=== PATIENT | female | born 1940 | race Caucasian/White ===

== ENCOUNTER 2016-10-10 13:40 | Emergency (ER) | payer MEDICARE, BC ==
[2016-10-10 15:33] VITALS: BP 133/63
--- NOTE | 2016-10-10 16:35 | UC ---
Skin Complaint HPI - HPI Summary HPI Summary: The patient comes in today for: 1. Skin lesion: Onset: one day. Palliative/provocative: Nothing makes it better or worse. Quality: No soreness Region: Back of head. Severity: 0/10 Time: Constant. Associated symptoms: None--no fevers. Event: She was put her hand up there when she was tending to her hair. She could not see it, but she felt something and worried that it may be a tick because she was walking along a trial. * - History of Current Complaint Chief Complaint: UCSkin Time Seen by Provider: 10/10/16 16:29 Stated Complaint: SKIN COMPLAINT HEAD Hx Obtained From: Patient - Allergy/Home Medications Allergies/Adverse Reactions: Allergies Allergy/AdvReac Type Severity Reaction Status Date / Time No Known Allergies Allergy Verified 10/10/16 15:27 Review of Systems Constitutional: Negative Skin: Rash Eyes: Negative ENT: Negative Respiratory: Negative Cardiovascular: Negative Gastrointestinal: Negative All Other Systems Reviewed And Are Negative: Yes PMH/Surg Hx/FS Hx/Imm Hx Previously Healthy: No - Saenz's esophagus. Endocrine History: Dyslipidemia - Surgical History Surgical History: Yes Surgery Procedure, Year, and Place: Gallbladder surgery, hiatal hernia repair, intestinal blockage repaired, right ring finger knuckle replacement, left ankle surgery w/ hardware after fx - Family History Known Family History: Positive: Cardiac Disease, Hypertension - Social History Occupation: Retired Alcohol Use: Occasionally Substance Use Type: None Smoking Status (MU): Never Smoked Tobacco - Immunization History Most Recent Influenza Vaccination: Fall 2013 Physical Exam Triage Information Reviewed: Yes Appearance: Well-Appearing, No Pain Distress, Well-Nourished Vital Signs: Initial Vital Signs Temp 97.7 F 10/10/16 15:28 Pulse 68 10/10/16 15:28 Resp 16 10/10/16 15:28 BP 133/63 10/10/16 15:28 Pulse Ox 99 10/10/16 15:28 Vital Signs Reviewed: Yes Eyes: Positive: Conjunctiva Clear. Negative: Discharge ENT: Positive: Normal ENT inspection. Negative: Pharyngeal erythema, Nasal congestion, Nasal drainage, TM bulging, TM dull, TM red, Tonsillar swelling, Tonsillar exudate Dental: Negative: Gross Decay/Caries @, Dental Fracture @ Neck: Positive: Supple, Nontender, No Lymphadenopathy. Negative: Nuchal Rigidity Respiratory: Positive: Chest non-tender, No respiratory distress, No accessory muscle use. Negative: Crackles, Wheezing, Expiration, Inspiration Cardiovascular: Positive: RRR, No Murmur Abdomen Description: Positive: Nontender, No Organomegaly, Soft. Negative: Distended, Guarding Musculoskeletal: Positive: Strength Intact, ROM Intact, No Edema Neurological: Positive: Alert, Muscle Tone Normal Psychological: Positive: Age Appropriate Behavior, Consolable Skin: Positive: rashes - The patient had a black crusty lesion on the back of the head/upper neck. It was easily scrapped off with a tongue blade. There was a 3-4 mm erythematous area. No bleeding, or tenderness. Patient states that she had her hair done recently. Course/Dx - Differential Diagnoses - Skin Complaint Differential Diagnoses: Drug Rash, Impetigo, Tinea - Diagnoses Provider Diagnoses: Abrasion of the posterior neck. Discharge - Discharge Plan Condition: Stable Disposition: HOME Patient Education Materials: Abrasion (ED) Referrals: Salena Devlin MD [Primary Care Provider] - If Needed (Please see your primary care provider as needed or if you have any more problems. If you have any problems, be seen again at that time.)
== END 2016-10-10 16:44 | disposition home or self-care (01) ==
LOC: UCCORT 13:40
DX: S10.91XA Abrasion of unspecified part of neck, initial encounter (principal); K22.70 Barrett's esophagus without dysplasia; E78.5 Hyperlipidemia, unspecified
CPT/HCPCS: 99211; G0463

== ENCOUNTER 2017-04-07 16:28 | Emergency (ER) | payer MEDICARE, BC ==
[2017-04-07 17:12] VITALS: BP 147/70
--- NOTE | 2017-04-07 17:31 | UC ---
Hand/Wrist HPI - HPI Summary HPI Summary: 76 yo female with left wrist injury after slipping and falling she is right handed - History Of Current Complaint Chief Complaint: UCUpperExtremity Stated Complaint: LEFT WRIST INJURY Time Seen by Provider: 04/07/17 17:07 Hx Obtained From: Patient Onset/Duration: Sudden Onset, Lasting Hours Severity Initially: Moderate Severity Currently: Mild Pain Intensity: 4 Pain Scale Used: 0-10 Numeric Character Of Pain: Dull, Aching Aggravating Factor(s): Movement Alleviating Factor(s): Rest, OTC Meds Associated Signs And Symptoms: Positive: Swelling Related History: Dominant Hand Right - Allergies/Home Medications Allergies/Adverse Reactions: Allergies Allergy/AdvReac Type Severity Reaction Status Date / Time No Known Allergies Allergy Verified 04/07/17 17:07 Home Medications: Home Medications Esomeprazole Magnesium [Nexium] 40 mg PO DAILY 04/07/17 [History Confirmed 04/07] Multivitamins/Minerals TAB* [Theragran/minerals TAB*] 1 tab PO DAILY 04/07/17 [ History Confirmed 04/07/17] PMH/Surg Hx/FS Hx/Imm Hx Previously Healthy: Yes Endocrine History: Dyslipidemia - Surgical History Surgical History: Yes Surgery Procedure, Year, and Place: Gallbladder surgery, hiatal hernia repair, intestinal blockage repaired, right ring finger knuckle replacement, left ankle surgery w/ hardware after fx - Family History Known Family History: Positive: Cardiac Disease, Hypertension - Social History Alcohol Use: Occasionally Substance Use Type: None Smoking Status (MU): Never Smoked Tobacco - Immunization History Most Recent Influenza Vaccination: Fall 2013 Review of Systems Constitutional: Negative Skin: Negative Eyes: Negative ENT: Negative Respiratory: Negative Cardiovascular: Negative Gastrointestinal: Negative Genitourinary: Negative Motor: Negative Neurovascular: Negative Musculoskeletal: Arthralgia Neurological: Negative Psychological: Negative Is Patient Immunocompromised?: No All Other Systems Reviewed And Are Negative: Yes Physical Exam Triage Information Reviewed: Yes Appearance: Well-Appearing, No Pain Distress, Well-Nourished Vital Signs: Initial Vital Signs Temp 96.3 F 04/07/17 17:04 Pulse 78 04/07/17 17:04 Resp 14 04/07/17 17:04 BP 147/70 04/07/17 17:04 Pulse Ox 98 04/07/17 17:04 Vital Signs Reviewed: Yes Eyes: Positive: Conjunctiva Clear ENT: Positive: Hearing grossly normal. Negative: Pharyngeal erythema, Trismus, Muffled voice, Hoarse voice Neck: Positive: Supple, Nontender, No Lymphadenopathy Respiratory: Positive: Lungs clear, Normal breath sounds, No respiratory distress Cardiovascular: Positive: RRR Musculoskeletal: Positive: ROM Limited @ - left wrist, Edema @ - tender / swollen distal left radius, NVI Neurological: Positive: Alert Psychological Exam: Normal Skin Exam: Normal Diagnostics - Radiology No standard instances Xray Interpretation: Positive (See Comments) - IMPRESSION: FINDINGS MOST CONSISTENT WITH A SLIGHTLY IMPACTED FRACTURE OF THE DISTAL RADIUS. Radiology Interpretation Completed By: Radiologist Hand/Wrist Course/Dx - Course Course Of Treatment: cock up splint placed - Differential Dx/Diagnosis Provider Diagnoses: slightly impacted fracture of distal left radius Discharge - Discharge Plan Condition: Stable Disposition: HOME Patient Education Materials: Wrist Fracture in Adults (ED) Referrals: Salena Devlin MD [Primary Care Provider] - Jalen Gale MD [Medical Doctor] - As Soon As Possible Additional Instructions: slight impacted distal left radius fracture aleve 2 twice daily as needed for pain
--- NOTE | 2017-04-07 18:01 | RAD ---
INDICATION: Left wrist injury. TECHNIQUE: 3 views of the left wrist were obtained. FINDINGS: The bones are osteoporotic. There is diffuse soft tissue swelling. There is mild deformity of the posterior aspect of the distal radius most consistent with a slightly impacted fracture. IMPRESSION: FINDINGS MOST CONSISTENT WITH A SLIGHTLY IMPACTED FRACTURE OF THE DISTAL RADIUS.
== END 2017-04-07 18:21 | disposition home or self-care (01) ==
LOC: UCCORT 16:28
DX: S52.502A Unspecified fracture of the lower end of left radius, initial encounter for closed fracture (principal); W01.0XXA Fall on same level from slipping, tripping and stumbling without subsequent striking against object, initial encounter; Y92.9 Unspecified place or not applicable
CPT/HCPCS: 99212; G0463

== ENCOUNTER 2018-07-22 08:36 | Emergency (ER) | payer MEDICARE, BC ==
[2018-07-22 09:20] VITALS: BP 145/58
--- NOTE | 2018-07-22 09:55 | ED ---
GI/ HPI - HPI Summary HPI Summary: 77 yr old female with about 24 hours of dysuria, frequency, hesitancy, and some blood in urine. She verbalizes that she feels she has a UTI. Denies fever, back pain. - History of Current Complaint Chief Complaint: UCGU Time Seen by Provider: 07/22/18 09:24 Stated Complaint: URINARY COMPLAINT Pain Intensity: 4 - Allergy/Home Medications Allergies/Adverse Reactions: Allergies Allergy/AdvReac Type Severity Reaction Status Date / Time No Known Allergies Allergy Verified 07/22/18 09:15 PMH/Surg Hx/FS Hx/Imm Hx - Surgical History Surgery Procedure, Year, and Place: Gallbladder surgery, hiatal hernia repair, intestinal blockage repaired, right ring finger knuckle replacement, left ankle surgery w/ hardware after fx Infectious Disease History: No Infectious Disease History: Reports: Traveled Outside the in Last 30 Days - [place] Denies: Hx Clostridium Difficile, Hx Hepatitis, Hx Human Immunodeficiency Virus (HIV), Hx of Known/Suspected MRSA, Hx Shingles, Hx Tuberculosis, Hx Known/ Suspected VRE, Hx Known/Suspected VRSA, History Other Infectious Disease - Family History Known Family History: Positive: Cardiac Disease, Hypertension - Social History Occupation: Retired Alcohol Use: Occasionally Substance Use Type: Reports: None Smoking Status (MU): Never Smoked Tobacco Review of Systems Negative: Fever, Chills Positive: dysuria, frequency, hematuria, urgency All Other Systems Reviewed And Are Negative: Yes Physical Exam Triage Information Reviewed: Yes Vital Signs On Initial Exam: Initial Vitals Temp Pulse Resp BP Pulse Ox 97.4 F 80 16 145/58 99 07/22/18 09:16 07/22/18 09:16 07/22/18 09:16 07/22/18 09:16 07/22/18 09:16 Vital Signs Reviewed: Yes Appearance: Positive: Well-Appearing, No Pain Distress Skin: Positive: Warm, Skin Color Reflects Adequate Perfusion Head/Face: Positive: Normal Head/Face Inspection Eyes: Positive: EOMI, KIRAN ENT: Positive: Normal ENT inspection Neck: Positive: Nontender Respiratory/Lung Sounds: Positive: Clear to Auscultation, Breath Sounds Present Cardiovascular: Positive: RRR. Negative: Murmur Abdomen Description: Negative: CVA Tenderness (R), CVA Tenderness (L) Musculoskeletal: Positive: Strength/ROM Intact Neurological: Positive: Sensory/Motor Intact, Alert, Oriented to Person Place, Time, CN Intact II-III, Normal Gait, Speech Normal Diagnostics - Vital Signs Vital Signs Temp Pulse Resp BP Pulse Ox 07/22/18 09:16 97.4 F 80 16 145/58 99 - Laboratory Lab Results: Lab Results 07/22/18 Range/Units 09:33 POC Urine Color Shaylee POC Urine Clarity Cloudy POC Urine pH 6.0 (5-9) POC Ur Specif [place] 1.020 (1.010-1.030) POC Urine Protein 2+ A (Negative) POC Ur Glucose (UA) Negative (Negative) POC Urine Ketones Trace A (Negative) POC Urine Blood 3+ A (Negative) POC Urine Nitrite Negative (Negative) POC Urine Bilirubin 1+ A (Negative) POC Urine Urobilinogen 0.2 (Negative) POC U Leukocyte Esteras 2+ A (Negative) Lab Statement: Any lab studies that have been ordered have been reviewed, and results considered in the medical decision making process. GIGU Course/Dx - Course Course Of Treatment: 77yr old with uti. Rx keflex - Diagnoses Provider Diagnoses: UTI (urinary tract infection), Hypertension Discharge - Sign-Out/Discharge Documenting (check all that apply): Patient Departure All imaging exams completed and their final reports reviewed: No Studies - Discharge Plan Condition: Good Disposition: HOME Prescriptions: Cephalexin CAP* [Keflex CAP*] 500 mg PO TID #14 cap Patient Education Materials: Urinary Tract Infection in Women (DC), Hypertension (ED) Referrals: Salena Devlin MD [Primary Care Provider] - 1 Day - Billing Disposition and Condition Condition: GOOD Disposition: Home
== END 2018-07-22 09:56 | disposition home or self-care (01) ==
LOC: UCCORT 08:36
DX: N39.0 Urinary tract infection, site not specified (principal); I10 Essential (primary) hypertension
CPT/HCPCS: 81003; 87077; 87086; 87186; 99212; G0463